=== PATIENT | female | born 1995 | race Two or more races ===

== ENCOUNTER → 2025-04-16 | Outpatient (CLI) | payer OTHER, SELFPAY ==
--- NOTE | 2025-04-16 09:30 | XR_ITS ---
Examination: Transvaginal ultrasound of the pelvis, complete Technique: Transvaginal sonographic images pelvis performed using rocha scale imaging Exam date and time: April 16, 2025 0943 hours INDICATIONS: Irregular menses several months. FINDINGS: Uterus 8.5 cm endometrial stripe 0.9 cm, no uterine mass or intrauterine gestation Right ovary 4.5 cm arterial flow small follicles Left ovary 3.7 cm arterial flow small follicles IMPRESSION: No uterine mass or intrauterine gestation.
== END | disposition home or self-care (01) ==
PROVIDERS: PCP Family Medicine; Referring Provider Family Medicine; Visit Provider Family Medicine
DX: N92.1 Excessive and frequent menstruation with irregular cycle (principal)
CPT/HCPCS: 76830

== ENCOUNTER 2025-06-15 08:07 | Outpatient (AMB) | payer OTHER, SELFPAY ==
--- NOTE | 2025-06-15 08:18 | GYNCLNT_ITS ---
Vital Signs 06/15/25 08:22 Height 1.57 m Height Method Stated Weight 91.682 kg Weight Measurement Method Standing Scale BMI 36.9 BP 109/75 Blood Pressure Source Automatic Cuff Blood Pressure Location Right Upper Arm Position Sitting Respiration 18 Pulse 66 Pulse Source Monitor Temp 97.8 F Temp Source Temporal Artery Scan Pulse Oximetry (%) 96 Oxygen Delivery Method Room Air Allergies/Home Meds Allergies & Medications Allergies Sulfa (Sulfonamide Antibiotics) Adverse Reaction (Severe, Verified 06/15/25 08:24) BODY TEMP DROPPED Medication Reconciliation levothyroxine 25 mcg capsule 25 mcg PO QDAY 06/15/25 [History Confirmed 06/15/25] norgestimate-ethinyl estradiol 0.18mg/0.215mg/0.25mg-0.035mg(28)tablet (Ortho Tri-Cyclen (28)) 1 tab PO QDAY 84 days #84 tabs 06/15/25 [Rx] sertraline 100 mg tablet 100 mg PO QDAY 06/15/25 [History Confirmed 06/15/25] Intake Visit Data Collection New Patient or Established: New Patient not seen in past 3 years at [facility] (considered New) Reason for Visit:: referral Seen by Clinical Staff ONLY (RN/MA): No Data Management Analyst Required: No Do You Feel Safe at Home: Yes Authorities Contacted: N/A PCP or OBGYN visit in last 3 months: No Hx Now: No Are you currently on any form of Control: No Last menstrual period: 06/07/25 Pain Present Currently: No Pain Scale Used: Starks-Alcaraz/Numerical Pain scale:: 0 Smoking Status Smoking Status: Never smoker Immunizations Flu Vaccine in the Last 12 Months: No Flu Vaccine Exclusion Criteria: No Exclusion Criteria 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 1. Little interest or pleasure in doing things: not at all 2. Feeling down, depressed, or hopeless: not at all Total score: 0 PHQ-9 3. Trouble falling or staying asleep, or sleeping too much: Not at all 4. Feeling tired or having little energy: Not at all 5. Poor appetite or overeating: Not at all 6. Feeling bad about yourself - or that you are a failure or have let yourself or your family down: Not at all 7. Trouble concentrating on things, such as reading the newspaper or watching television: Not at all 8. Moving or speaking so slowly that other people could have noticed? - Or the opposite - being so fidgety or restless that you have been moving around a lot more than usual: not at all 9. Thoughts that you would be better off or of hurting yourself in some way: Not at all Total score: 0 If you checked off any problems, how difficult have these problems made it for you to do your work, take care of things at home, or get along with other people?: not difficult at all Source: Developed by Drs. Tyler Monsivais, Chata Draper, Steven Hubbard and colleagues, with an educational amador from [email or web address]. Depression screen completed yes Social History Living Situation History Marital Status: Unknown Lives With: Family Housing: House Tobacco History Smoking Status: Never smoker Second Hand Smoke Exposure: No Alcohol History Alcohol Intake: Never Domestic Abuse History Do You Feel Safe at Home: Yes History of Present Illness HPI Narrative Irregular, heavy, painful periods with recent large blood clot and pain with discharge Neetu Cyr is a 29-year-old female with a history of ovarian cysts presenting for abnormal uterine bleeding. She reports irregular, heavy, and painful menstrual periods. Her last menstrual period was on June 07, 2025, which was 2 days late. During her most recent cycle, she experienced pain and discharge before going to sleep, and upon waking had a large blood clot. She describes her cycles as coming 2 days late but does not specify if the irregular timing is a new pattern or longstanding issue. The patient denies any history of sexually transmitted diseases and reports no other medical problems. She is currently sexually active with a male partner and is not trying to conceive, stating she does not want children for about 2 years. She does not currently use any control or hormones. Medical History: - History of ovarian cysts - Thyroid condition Obstetric History: - GPAL: G0 T0 L0 - The patient has never been Social History: - Currently sexually active with male partner - Not currently trying to conceive, plans to consider in approximately 2 years - Pap smear (2022): Normal - Transvaginal ultrasound (04/16/2025): Uterus 8.5 cm, endometrial stripe 0.9 cm, no intrauterine mass, right ovary 4.5 cm with small follicles, left ovary with small follicles Exam General General Appearance: alert, in no apparent distress and healthy appearing Head Head exam: atraumatic Neck Neck exam: Present normal inspection and trachea midline Chest Chest inspection: Present normal inspection and symmetric chest wall rise External exam: Present normal external exam; Absent tenderness Neuro Neurological exam: Present oriented X3 Psych Psychiatric exam: Present normal affect and normal mood Office Procedures [facility] LOC & Office Proc's Nursing/Assessment Patient Status: Established Patient OB Clinic Nursing Assessment: Medication Reconciliation, Update PMH in EMR and Vital Signs OB Clinic Coordination of Care: Complex Care and Chronic Disease 1-5, Education Complex Pt/Fam, Consent,records obtained, informed consent, Lab and Imaging orders, Results/Orders obtained and Staff clarify orders Established Patient Charge Established Patient Point Assignment: 110 Established Patient Point Charge: EP Level 3 (80-115) Assessment & Plan Diagnosis / Problem List (1) Anovulatory (dysfunctional uterine) bleeding: Status: Acute Plan Abnormal uterine bleeding Assessment: Patient presents with anovulatory bleeding pattern characterized by irregular cycle timing (2 days late), heavy flow, and recent large blood clots. When ovulation does not occur, hormonal imbalance causes the endometrial lining to build up excessively and then shed heavily. Recent transvaginal ultrasound from April 2025 shows normal uterus (8.5 cm) with endometrial stripe of 0.9 cm, no intrauterine masses, and bilateral ovaries with multiple small follicles indicating readiness to ovulate but failure to do so. History of ovarian cysts noted in primary care records. Patient is not currently using hormonal contraception. Plan: - Start low-dose control pill for 3-6 months to regulate cycles and induce ovulation - Order hormone panel including thyroid function tests - Patient counseled that thyroid dysfunction can contribute to irregular cycles and correction may benefit menstrual regulation - Future fertility planning discussed: when ready to conceive in approximately 2 years, will discontinue control and transition to ovulation induction medication
[2025-06-15 08:22] VITALS: BP 109/75; PULSE 66; RESP 18; TEMP 36.6; O2SAT 96; BMI 36.9
== END 2025-06-15 09:14 | disposition home or self-care (01) ==
LOC: HODSOBC 08:07
PROVIDERS: PCP Family Medicine; Referring Provider Family Medicine; Supervising Provider Obstetrics & Gynecology; Visit Provider Obstetrics & Gynecology
DX: N97.0 Female infertility associated with anovulation (principal); Z88.2 Allergy status to sulfonamides
CPT/HCPCS: 99213; G0463